=== PATIENT | male | born 1970 | race Hispanic/Latino ===

== ENCOUNTER 2019-03-08 06:04 | Emergency (ER) | payer BC ==
[~2019-03-08] VITALS: Ht 167.6 cm; Wt 79.4 kg
[~2019-03-08 06:04] MED LIST: HYDROCHLOROTHIA25 MG PO; LOSARTAN POTAS100 MG PO; NIFEDIPINE ER30 M1 PO
[2019-03-08] MEDS ORDERED: IBUPROFEN 600 MG TAB PO STA (06:54)
[2019-03-08] MEDS ORDERED: HYDROCODONE/APAP 10MG-325MG TAB PO ONE (07:00)
[2019-03-08] MEDS ORDERED: NAPROXEN250 MG PO (07:12)
[2019-03-08] MEDS ORDERED: ULTRAM50 MG PO (07:12)
--- NOTE | 2019-03-08 07:59 | Diagnostic Imaging Report ---
X-RAY RIGHT KNEE 3 VIEWS HISTORY: Pain. COMPARISON: None available. FINDINGS: Bones: No acute displaced fracture. Osseous alignment is within normal limits. Joints: Tricompartmental osteophytes, medial tibiofemoral and patellofemoral compartment predominant. Small joint effusion. Soft tissues: The soft tissues appear unremarkable. IMPRESSION: No acute radiographic osseous abnormality. Degenerative changes in the knee medial and patellofemoral compartment predominant with small joint effusion. Signed by: Keagan Scruggs DO on 03/08/2019 7:55 AM
[2019-03-08] MEDS ORDERED: NIFEDIPINE ER60 M1 (08:12)
== END 2019-03-08 08:20 | disposition home or self-care (01) ==
LOC: ER 06:04
DX: M25.561 Pain in right knee (principal); M25.461 Effusion, right knee
CPT/HCPCS: 99282

== ENCOUNTER → 2020-07-05 | Day surgery (SDC) | payer BC ==
[~2020-07-05] MED LIST changes: +ASPIRIN81 MG PO; +FENTANYL CITRATE/PF 100MCG/2 ML INJ ONE; +LIDOCAINE HCL 2% LOCAL INJ 5 ML SDV VIAL INJ ONE; +MIDAZOLAM HCL 2 MG/2 ML VIAL ONE; +NAPROXEN250 MG PO; +NIFEDIPINE ER60 M1; +PROPOFOL IV EMULSION 10 MG/ML 20 ML VIAL ONE; +ULTRAM50 MG PO
[2020-07-05 08:45] VITALS: BP 134/89
== END | disposition home or self-care (01) ==
LOC: OR 05:59
PROVIDERS: ATTEND Internal Medicine Gastroenterology
DX: Z12.11 Encounter for screening for malignant neoplasm of colon (principal); K57.30 Diverticulosis of large intestine without perforation or abscess without bleeding; K64.8 Other hemorrhoids; Z71.3 Dietary counseling and surveillance; E66.01 Morbid (severe) obesity due to excess calories; I10 Essential (primary) hypertension; Z01.810 Encounter for preprocedural cardiovascular examination; Z01.812 Encounter for preprocedural laboratory examination; Z20.822 Contact with and (suspected) exposure to COVID-19; Z79.82 Long term (current) use of aspirin; Z68.41 Body mass index [BMI] 40.0-44.9, adult; Z86.73 Personal history of transient ischemic attack (TIA), and cerebral infarction without residual deficits
CPT/HCPCS: 45378; 93005; J2001; J2250; J2704; J3010; U0002